=== PATIENT | female | born 1960 | race Caucasian/White ===

== ENCOUNTER 2020-10-05 11:07 | Outpatient (CLI) | payer OTHER, SELFPAY ==
--- NOTE | 2020-10-14 12:42 | WPDHOLTEREM ---
Holter/Event Monitor Holter/Event Monitor Date of procedure: 10/12/20 Procedure Type: 48 hour holter monitor Indications: Palpitations Conclusion: 1. 48 hour holter monitor on 10/12/20. 2. Predominant rhythm is sinus rhythm. HR range 62-117 bpm; average HR 80 bpm. 3. There are 78 premature supraventricular complexes and 5 supraventricular couplets. There are 6 episodes of atrial tachycardia, fastest at 145 bpm and longest lasting 10 beats. 4. There are 175 premature ventricular complexes. No ventricular tachycardia. 5. No sinoatrial or atrioventricular blocks. No significant pauses greater than 2 seconds. 6. No symptoms available for correlation.
== END 2020-10-05 11:08 | disposition home or self-care (01) ==
PROVIDERS: PCP Internal Medicine; Visit Provider Nurse Practitioner
DX: R00.2 Palpitations (principal)
CPT/HCPCS: 93225; 93226

== ENCOUNTER → 2020-11-16 13:08 | Outpatient (CLI) | payer OTHER, SELFPAY ==
--- NOTE | ~2020-11-16 | CT_ITS ---
EXAMINATION:CT lung screening DATE: 11/16/2020 13:21 INDICATION: Personal history of tobacco dependence. Current smoker. TECHNIQUE: Computed tomography (CT) of the chest was performed without intravenous contrast. Automate d exposure control and iterative reconstruction technique were employed. The dose-length product (DLP ) was 63.49 mGy-cm. COMPARISON: CT abdomen and pelvis 12/05/2018 FINDINGS: There is mild emphysema. There is chronic peripheral septal thickening with mild groundglas s opacities in the inferior lungs. No bronchiectasis. The heart size is normal. No pericardial effusi on. There are coronary artery calcifications. There is a 1.5 cm cyst in the liver. 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 There is a chronic 13 mm mass left adrenal gland measuring low-attenuation, c onsistent with an adenoma. There is mild thoracic spondylosis. IMPRESSION: 1. Lung-RADS category 2: Benign appearance or behavior. Reviewed, dictated and finalized at location B.
== END ==
PROVIDERS: PCP Internal Medicine; Visit Provider Internal Medicine
DX: Z87.891 Personal history of nicotine dependence (principal)
CPT/HCPCS: 71271

== ENCOUNTER 2024-08-13 11:00 | Outpatient (CLI) | payer MEDICARE, BC, SELFPAY ==
--- NOTE | ~2024-08-13 | CT_ITS ---
CT Scan of the Chest without Contrast: Clinical Indication: Lung cancer screening, nicotine dependence Technique: Contiguous sections were acquired throughout the chest without intravenous contrast. Dose reduction technique was used on this scan by utilizing automated exposure control and iterative recon struction technique. The dose-length product (DLP) was 86.12 mGy-cm. COMPARISON: 11/16/2020 Findings: There is no evidence of any significant mediastinal, hilar or axillary lymphadenopathy. The mediastin al soft tissues appear normal. There is no evidence of pleural or pericardial effusion. No pulmonary nodule evident. Probable minimal emphysema. Possible minimal bibasilar interstitial dov a. Images through the upper abdomen reveal stable left adrenal adenoma. Impression: Lung RADS 1: Negative. [address] advised. Minimal edema and possible minimal bibasilar interstitial edema. Reviewed, dictated and finalized at [facility]. ING ASSISTANT Impression: Lung RADS 1: Negative. [address] advised. Minimal edema and possible minimal bibasilar interstitial edema.
--- OUTSIDE RECORDS SUMMARY | 2024-08-13 11:31 | XMS_ITS | Clinical Summary ---
Author Organization [facility] Address [address] [place] [address] Phone Care Team Providers Care Industrial Psychology Professor Name Role Phone Camden Alejandre MD Primary Care Provider + Allergies Active Allergy Reactions Criticality Noted Date Comments Codeine Hives 08/13/2013 Oxycodone Hives,Nausea and Vomiting 06/02/2018 Penicillins Hives 08/13/2013 Sulfa (Sulfonamide Antibiotics) Hives 08/13/2013 Tramadol Hives,Shortness of Breath/Wheezing,Nausea and Vomiting 06/02/2018 Medications diphenhydrAMIN E (BENADRYL) 25 mg tablet Take 50 mg by mouth every 6 hours as needed for Allergies . Active traMADol (ULTRAM) 50 mg tablet Take 100 mg by mouth every 6 hours as needed for Pain. Active acetaminophen (TYLENOL) 500 mg tablet Take 500 mg by mouth every 6 hours as needed. Active methocarbamol (ROBAXIN) 750 mg tablet Take 750 mg by mouth 3 times daily as needed for Spasm. Active ALPRAZolam (XANAX XR) 0.5 mg Extended Release 24 hour tablet Take 0.5 mg by mouth see administration instructions Takes 2 at night and 1 in am . Active Active Problems Problem Noted Date Diagnosed Date Chest pain 08/13/2013 Active smoker 08/13/2013 Immunizations Immunization Administration Dates Next Due INFLUENZA VACCINE QUADRIVALENT 6 MOS UP PF IM Influenza Seasonal Unspecified Formulation IM Social History Tobacco Use Types Packs/Day Years Used Date Smoking Tobacco: Every Day Cigarettes 1 35 Smokeless Tobacco: Never Alcohol Use Standard Drinks/Week Comments Yes 0 (1 standard drink = 0.6 oz pur e alcohol) once/month Comments No Sex and Gender Information Value Date Recorded Sex Assigned at Not on file Legal Sex Female 4:21 AM YARN INSPECTOR Gender Identity Not on file Sexual Orientation Not on file Occupation Industry Job Start Date Job End Date Not on file Not on file Not on file Not on file Last Filed Vital Signs Vital Sign Reading Time Taken Comments Blood Pressure 114/71 07/21/2020 4:09 PM YARN INSPECTOR Pulse 88 07/21/2020 4:09 PM YARN INSPECTOR Temperature 36.8 C (98.2 F) 07/21/2020 4:09 PM YARN INSPECTOR Respiratory Rate 15 07/21/2020 4:09 PM YARN INSPECTOR Oxygen Saturation 94% 07/21/2020 4:09 PM YARN INSPECTOR Inhaled Oxygen Concentration - - Weight 63.5 kg (140 lb) 06/12/2019 10:35 AM YARN INSPECTOR Height 162.6 cm (5' 4 ) 06/12/2019 10:35 AM YARN INSPECTOR Body Mass Index 24.03 06/12/2019 10:35 AM YARN INSPECTOR Plan of Treatment Health Maintenance Due Date Last Done Comments DTAP/TDAP/TD VACCINES (1 - Tdap) 1978 PNEUMOCOCCAL VACCINE 65+ YEA RS (1 of 2 - PCV) 1978 BREAST CANCER SCREENING 1999 COLORECTAL SCREENING 02/22/2004 Colorectal Cancer Screening 02/22/2004 FIT-DNA Q 3 years 02/22/2004 FIT/FOBT Q 1 year 02/22/2004 Flex Sig/CT Colonography Q 5 years 02/22/2004 ZOSTER VACCINE (1 of 2) 2009 INFLUENZA VACCINE (#1) 2024 06/26/2018, 2012 OSTEOPOROSIS SCREENING 02/22/2024 COVID-19 Vaccine (3 - season) 2024, 09/02/2020 RSV VACCINE (60+ or ) (1 - 1-dose 75+ series) 2034 Medical Devices Implanted Type Area [employer] Stitcher Device Identifier Shelf Expiration Date Model / Serial / Lot Cement Rally [address] 7148-9291 - [id number] Implanted:Qty : 1 on 06/25/2018 by Kevin Yanes MD at [facility] Cement Right: Knee DRAPER NEPHEW ORTHO [id number] 12/05/2022 [id number] / / [id number] Description:REQUISITION # [id number] Knee Implanted:(Qu antity not on file) Explanted:(Qu antity not on file) Knee Description:right knee plate and screws/ titanium Comp Fem Jrny2 Oxnm Sz5 Rt 7228-8609 - [id number] Implanted:Qty : 1 on 06/25/2018 by Kevin Yanes MD at [facility] Knee Right: Knee DRAPER NEPHEW ORTHO [id number] 04/12/2028 [id number] / / [id number] Patella Jrny Resurf Std 0790-5506 - [id number] Implanted:Qty : 1 on 06/25/2018 by Kevin Yanes MD at [facility] Knee Right: Knee DRAPER NEPHEW ORTHO [id number] 03/28/2028 [id number] / / [id number] Non Porous Tibial Baseplate Implanted:Qty : 1 on 06/25/2018 by Kevin Yanes MD at [facility] Knee Right: Knee DRAPER NEPHEW ORTHO 02/25/2028 [id number] / / [id number] Ins Jrny2 Sz3-4 Rt 9mm [id number] - [id number] Implanted:Qty : 1 on 06/25/2018 by Kevin Yanes MD at [facility] Knee Right: Knee DRAPER NEPHEW ORTHO 11/26/2026 [id number] / / [id number] Explanted Type Area [employer] Stitcher Device Identifier Shelf Expiration Date Model / Serial / Lot 1 Bio Enterferance Screw Explanted:Qty: 1 on 06/25/2018 by Kevin Yanes MD at [facility] Right: Knee Description:screw explanted from previous R ACL surgery. [place] [id number] [place] [id number] Advance Directives For more information, please contact: [phone] * Full Code (Latest Code Status on File) Date Activated Date Inactivated Comments 06/25/2018 5:37 PM 06/27/2018 7:03 PM * Full Code Date Activated Date Inactivated Comments 06/25/2018 10:32 AM 06/25/2018 5:37 PM Care Teams Industrial Psychology Professor Relationship Specialty Start Date End Date Camden Alejandre MD PCP - General Internal Medicine 11/22/11
--- OUTSIDE RECORDS SUMMARY | 2024-08-13 11:31 | XMS_ITS | Clinical Summary ---
Author Organization [facility] Address [address] [place] [id number] Care Team Providers Care City Bus Driver Name Role Phone Clair Boudreaux Marcelina [employer] Primary Care Provider [phone] Social History Tobacco Use Types Packs/Day Years Used Date Smoking Tobacco: Never Assessed Comments Unknown Sex and Gender Information Value Date Recorded Sex Assigned at Not on file Legal Sex Female 8:34 PM CDT Gender Identity Not on file Sexual Orientation Not on file Plan of Treatment Health Maintenance Due Date Last Done Comments Colorectal Cancer Screening Colonoscopy (10 Years) 1959 Hepatitis C 1977 DTaP, Tdap and Td Vaccines ( 1 - Tdap) 1978 Mammogram Screening 1999 Zoster Vaccines (1 of 2) 2009 Dexa Scan (General) 02/22/2024 Pneumococcal Vaccine: 65+ Years (1 of 1 - PCV) 02/22/2024 COVID-19 Vaccine (3 - 2023-2 5 season) 2024 09/23/2020, 09/02/2020 Influenza Adult (#1) 2024 06/26/2018, 04/07/2013 RSV Immunization or 60+ Years (1 - 1-dose 75+ series) 2034 Meningococcal B Vaccine Aged Out No l onger eligible based on patient's age to complete this topic Meningococcal Vaccine Aged Out No darryl juan eligible based on patient's age to complete this topic Pneumococcal Vaccine: Pediatrics (0 to 5 Years) and At-Risk Patients (6 to 64 Years) Aged Out No longer eligible b ased on patient's age to complete this topic RSV Immunizations Under 20 Months Aged Out No longer eligible b ased on patient's age to complete this topic Insurance [facility] Care Teams City Bus Driver Relationship Specialty Start Date End Date Clair Boud[place] [address] PCP - General NURSE PRACTITIONER 05/17/19
--- OUTSIDE RECORDS SUMMARY | 2024-08-13 11:31 | XMS_ITS | Clinical Summary ---
Author Organization [facility] Address [address] [place] [address] Care Team Providers Care Radiator Repairer Name Role Phone Unavailable Primary Care Provider Unavailabl e Source Comments [facility],non-owned Affiliates and Associated Physician Practices is amultiple site organization consisting of ambulatory clinics and hospital sitesin [place], [place] and [place]. This disclosure is being madepursuant to the Care Everywhere program and may not contain all information available regarding this patient. Last updated 18.[facility] [employer] Immunizations Name Administration Dates Next Due Covid Pfizer primary monoval ent 12+ yr 0.3mL Purple cap 09/23/2020,09/02/2020 Social History Tobacco Use Types Packs/Day Years Used Date Smoking Tobacco: Never Assessed Sex and Gender Information Value Date Recorded Sex Assigned at Not on file Gender Identity Not on file Sexual Orientation Not on file Last Filed Vital Signs Vital Sign Reading Time Taken Comments Blood Pressure 117/82 09/04/2017 11:33 AM TUCK POINTER HELPER Pulse 83 09/04/2017 11:33 AM TUCK POINTER HELPER Temperature 36.7 C (98.1 F) 02/05/2017 1:15 PM CDT Respiratory Rate 15 02/05/2017 1:30 PM CDT Oxygen Saturation 93% 02/05/2017 1:30 PM CDT Inhaled Oxygen Concentration - - Weight 72.6 kg (160 lb) 09/04/2017 11:33 AM TUCK POINTER HELPER Height 163.8 cm (5' 4.5 ) 09/04/2017 11:33 AM CS T Body Mass Index 27.04 09/04/2017 11:33 AM TUCK POINTER HELPER Plan of Treatment Health Maintenance Due Date Last Done Comments BONE DENSITY TESTING 1959 COLOGUARD (AGES 45-75) - COL ON CA SCREENING 1959 COLON MONITORING 1959 COLONOSCOPY - COLON CA SCREENING 1959 CT COLONOGRAPHY - COLON CA SCREENING 1959 Colorectal Cancer Screening 1959 FIT - COLON CA SCREENING 1959 FLEX SIG - COLON CA SCREENING 1959 LIPID TESTING 1959 MAMMOGRAM 1959 PAP SMEAR 1959 HIV SCREENING 1974 HEPATITIS C SCREENING 02/16/1977 DTAP/TDAP/TD VACCINES (1 - Tdap) 1978 PNEUMOCOCCAL VACCINE 50+ (1 of 1 - PCV) 2009 ZOSTER VACCINE (1 of 2) 2009 COVID-19 VACCINE (3 - 2023-2 5 season) 2024 09/23/2020, 09/02/2020 INFLUENZA VACCINE (#1) 2024 8, 04/07/2013 DEPRESSION SCREENING 07/08/2024 Respiratory Syncytial Virus (RSV) Vaccine Pt: or over 60 yrs (1 - 1-dose 75+ series) 2034 HEPATITIS B VACCINE Aged Out No longe r eligible based on patient's age to complete this topic HIB VACCINE Aged Out No longer eligi ble based on patient's age to complete this topic HPV VACCINE Aged Out No longer eligi ble based on patient's age to complete this topic MENINGOCOCCAL (Group B) VACCINE Aged Out No longer eligible b ased on patient's age to complete this topic MENINGOCOCCAL VACCINE Aged Out No darryl juan eligible based on patient's age to complete this topic
--- OUTSIDE RECORDS SUMMARY | 2024-08-13 11:31 | XMS_ITS | Referral Summary ---
Author Organization [facility] Address [address] [place] [address] Care Team Providers Care Radiation Officer Name Role Phone Unavailable Primary Care Provider Unavailabl e Source Comments [facility],non-owned Affiliates and Associated Physician Practices is amultiple site organization consisting of ambulatory clinics and hospital sitesin [place], [place], [place] and [place]. This disclosure is being madepursuant to the Care Everywhere program and may not contain all information available regarding this patient. Last updated 18.[facility] Immunizations Name Administration Dates Next Due Fabiana George primary monoval ent 12+ yr 0.3mL Purple cap 09/23/2020,09/02/2020 Social History Tobacco Use Types Packs/Day Years Used Date Smoking Tobacco: Never Assessed Sex and Gender Information Value Date Recorded Sex Assigned at Not on file Gender Identity Not on file Sexual Orientation Not on file Last Filed Vital Signs Vital Sign Reading Time Taken Comments Blood Pressure 117/82 09/04/2017 11:33 AM CORE JAVA SOFTWARE ENGINEER Pulse 83 09/04/2017 11:33 AM CORE JAVA SOFTWARE ENGINEER Temperature 36.7 C (98.1 F) 02/05/2017 1:15 PM CDT Respiratory Rate 15 02/05/2017 1:30 PM CDT Oxygen Saturation 93% 02/05/2017 1:30 PM CDT Inhaled Oxygen Concentration - - Weight 72.6 kg (160 lb) 09/04/2017 11:33 AM CORE JAVA SOFTWARE ENGINEER Height 163.8 cm (5' 4.5 ) 09/04/2017 11:33 AM CS T Body Mass Index 27.04 09/04/2017 11:33 AM CORE JAVA SOFTWARE ENGINEER Plan of Treatment Not on file
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
--- OUTSIDE RECORDS SUMMARY | 2024-08-13 11:31 | XMS_ITS | Clinical Summary ---
Author Organization [facility] Address [address], [address] [address] Phone Care Team Providers Care Fraud Investigator Name Role Phone Camden Alejandre MD Primary Care Provider [phone] Itz Joel DO Unavailable [phone] Allergies Active Allergy Reactions Criticality Noted Date Comments Codeine Unknown 05/17/2016 Penicillins Unknown 05/17/2016 Sulfa Antibiotics Unknown 05/17/2016 Tramadol Unknown 05/17/2016 Medications polyethylene glycol (MIRALAX) Powder Mix the entire bottle with 64 oz of a clear liquid. Use as directed by the office for colonoscopy prep. 255 g 0 6 Active polyethylene glycol (MIRALAX) Powder Use entire 255g bottle with 64oz of clear liquid as directed for colonoscopy prep. 255 g 0 6 Active ALPRAZolam (XANAX) 0.5 MG Tablet Take 0.5 mg by mouth 3 times daily as needed. Active diphenhydrAMINE (BENADRYL) 25 MG Tablet Take 25 mg by mouth every 6 hours as needed. Active methocarbamol (ROBAXIN) 750 MG Tablet Take 750 mg by mouth 4 times daily. Active Probiotic Product (PROBIOTIC DAILY PO) Take by mouth. Activ e Family History Medical History Relation Name Comments Chronic Obstructive Pulmonary Disease Father Congestive Heart Failure Father Arthritis Mother Lung Cancer Mother Congestive Heart Failure Sister Relation Name Status Comments Father Mother Sister Social History Tobacco Use Types Packs/Day Years Used Date Smoking Tobacco: Former Cigarettes 1 30 1 07/17/1984 - 05/17/2015 Alcohol Use Standard Drinks/Week Comments Yes 0 (1 standard drink = 0.6 oz pur e alcohol) Comments Unknown Sex and Gender Information Value Date Recorded Sex Assigned at Not on file Legal Sex Female 1:36 PM CDT Gender Identity Not on file Sexual Orientation Not on file Plan of Treatment Health Maintenance Due Date Last Done Comments DEXA Bone Density 1960 Hepatitis C Virus (HCV) Screening 1960 TdaP Immunization 1959 Cologuard 2009 Immunochemical Fecal Occult Blood 2009 Mammogram 2009 Pneumococcal Immunization (5 0+ years) (1 of 1 - PCV) 2009 Zoster Immunization (1 of 2) 2009 Influenza Immunization (#1) 2024 SARS-COV-2 Immunization (1 - season) 2024 Colonoscopy 05/03/2026 05/03/2016 Colorectal Cancer Screening 05/03/2026 Respiratory Syncytial Virus (RSV) Immunization (Adult) (1 - 1-dose 75+ series) 2034 05/03/2016 Hepatitis B Immunization Aged Out No longer eligible based on patient's age to complete this topic Meningococcal Immunization (ACWY) Aged Out No longer eligible based on patient's age to complete this topic Pneumococcal Immunization Combined Aged Out No longer eligible based on patient's age to complete this topic Rotavirus Immunization Aged Out No lo nger eligible based on patient's age to complete this topic Procedures Procedure Name Priority Date/Time Associated Diagnosis Comments COLONOSCOPY Routine 05/03/2016 from Last 3 Months or Most Recently Relevant to Health Maintenance Results * COLONOSCOPY (05/03/2016) Camden Alejandre MD PROCEDURE/MINOR SURGICAL ORDER JANELLE Final Result from Last 3 Months or Most Recently Relevant to Health Maintenance Insurance [facility] Care Teams Fraud Investigator Relationship Specialty Start Date End Date Camden Alejandre MD [address] [place] [address] PCP - General Internal Medicine 05/04/16 Itz Joel DO [address] [place] [address] Gastroenterology 05/04/16
== END 2024-08-13 11:01 | disposition home or self-care (01) ==
PROVIDERS: PCP Family Medicine; Visit Provider Family Medicine
DX: Z12.2 Encounter for screening for malignant neoplasm of respiratory organs (principal); Z87.891 Personal history of nicotine dependence
CPT/HCPCS: 71271

== ENCOUNTER 2025-03-05 07:13 | Outpatient (CLI) | payer MEDICARE, SELFPAY ==
--- NOTE | ~2025-03-05 | DEXA_ITS ---
Bone Density Report Name: JOSE TAPIA Age: 65 Sex: Female Ethnicity: White Date of : 1960 Indication: postmenopausal; screening for osteoporosis; seizure disorder; hysterectomy; Referring Provider: RUTHANN VO Study: Bone densitometry was performed. Exam Date: March 05, 2025 Accession number: [id number] Bone Density: Region BMD T-score Z-score Classification AP Spine(L1-L4) 0.841 -1.9 0.0 Osteopenia Femoral Neck (Left) 0.656 -1.7 -0.2 Osteopenia Total Hip (Left) 0.825 -1.0 0.3 Normal Femoral Neck (Right) 0.612 -2.1 -0.6 Osteopenia Total Hip (Right) 0.741 -1.6 -0.4 Osteopenia Total Hip Mean 0.783 -1.3 -0.1 Osteopenia World Health Organization criteria for BMD impression classify patients as: Normal (T-score at or above -1.0), Osteopenia (T-score between -1.0 and -2.5), or Osteoporosis (T-score at or below -2.5). 10-year Fracture Risk(1): Major Osteoporotic Fracture 11% Hip Fracture 1.7% Reported Risk Factors: [place] (), Neck BMD=0.612, BMI=27.2 (1) FRAX(R) Version 3.08. Fracture probability calculated for an untreated patient. Fracture probability may be lower if the patient has received treatment. Clinical Information Provided by Patient: Has used the following medications: Vitamin D Has the following medical conditions: Any Seizure Disorders, Hysterectomy Patient maximum height was 64.5 Menopause Age: 32 Drinks caffeinated beverages Onset of menses at age 12 Number of children 2 Impression: The patient has low bone mass, based on the Right Femoral Neck T-score. The patient has an estimated ten-year risk of hip fracture of 1.7% and an estimated ten-year risk of major fracture of 11%, based on the WHO FRAX algorithm. Discussion: BONE DENSITY IS LOW AT ONE OR MORE SKELETAL SITES. This patient's lowest T-score is low at one or more skeletal sites. It meets the World Health Organization's (WHO) criteria for ?low bone mass? (T-score between -1.0 and -2.5). The patient's 10-year risk of fracture as calculated by FRAX is less than the threshold where pharmacological therapy is recommended by the National Osteoporosis Foundation (NOF). However, all treatment decisions require clinical judgment and consideration of individual patient factors, including patient preferences, comorbidities, previous drug use, risk factors not captured in the FRAX model (e.g., frailty, falls, vitamin D deficiency, increased bone turnover, interval significant decline in bone density) and possible under or overestimation of fracture risk by FRAX. The patient should follow a healthful lifestyle (good nutrition with adequate calcium and vitamin D, and appropriate weight-bearing exercise). Follow-Up: Consider repeating this study in 2 to 3 years to reassess this patient's status, or sooner if there is some new clinical indication. Reported by: SUDHIR on 03/05/2025 7:56:00 AM. Reviewed, dictated and finalized at location A.
--- NOTE | ~2025-03-05 | MM_ITS ---
EXAMINATION: MM screening jj BI w yaron HISTORY: Screening TECHNIQUE: Craniocaudal and mediolateral oblique 3-D tomosynthesis images were obtained and synthetic 2-D images were generated. CAD analysis was submitted and interpreted. COMPARISON: None provided BREAST PARENCHYMAL COMPOSITION: The breasts are heterogeneously dense, which may obscure small masses. FINDINGS: There is no evidence of suspicious mass, calcification, or architectural distortion to suggest malignancy in either breast. IMPRESSION: 1. No mammographic evidence of malignancy. 2. Recommend routine screening mammography in one year. BI-RADS Category 1: Negative Reviewed, dictated and finalized at location B.
== END 2025-03-05 07:14 | disposition home or self-care (01) ==
LOC: ANHFOHIMG 07:17
PROVIDERS: PCP Family Medicine; Visit Provider Family Medicine
DX: Z12.31 Encounter for screening mammogram for malignant neoplasm of breast (principal); Z78.0 Asymptomatic menopausal state; M85.89 Other specified disorders of bone density and structure, multiple sites
CPT/HCPCS: 77063; 77067; 77080